=== PATIENT | female | born 1995 | race Native Hawaiian/Other Pacific Islander ===

== ENCOUNTER 2016-10-21 11:41 | Inpatient (IN) ==
[2016-10-21 12:44] LABS: URINE SOURCE VOIDED
[2016-10-21 12:48] LABS: BILIRUBIN URINE NEGATIVE (NEGATIVE); BLOOD URINE 2+ (NEGATIVE); CLARITY SL. CLOUDY (CLEAR); COLOR YELLOW; GLUCOSE URINE NEGATIVE (NEGATIVE); LEUKOCYTES URINE 2+ (NEGATIVE); NITRITE URINE NEGATIVE (NEGATIVE); PROTEIN URINE NEGATIVE (NEGATIVE); UROBILINOGEN URINE NORMAL
[2016-10-21] MEDS ORDERED: REGLAN PO ONE (13:20)
[2016-10-21] MEDS ORDERED: KEFZOL 1 GM/D5W 1 GM/50 ML IVPB IV PRN (13:20)
[2016-10-21] MEDS ORDERED: LR 500 ML IV ONE (13:20)
[2016-10-21] MEDS ORDERED: PEPCID PO ONE (13:20)
--- NOTE | 2016-10-21 13:32 | HISTORY AND PHYSICAL ---
DIAGNOSES: 1. Apparent term . 2. No care. 3. Spontaneous rupture of membranes. 4. Previous section. SUMMARY: Ruthie Nguyen is a 20-year-old 2, para 1-0-0-1. She has not had care. She did come to labor and delivery approximately a month ago. Her laboratory evaluations were performed. She is A positive. Rubella is immune. Hepatitis B surface antigen, HIV are negative. This patient gives a history of her previous for failure to progress in labor. I do not have any operative records. She came in today with rupture of membranes. She is unsure of when rupture of membranes occurred. She woke up at approximately 8 a.m. with the bed being wet. Rupture membranes has been confirmed with the ROM Plus test. She is 1-2 cm dilated, heart tones were category 1. There is occasional contraction. Infant in the vertex presentation. Due to history of previous and unknown scar she is not a candidate for trial of labor. We are therefore proceeding with a repeat C- section. PAST MEDICAL HISTORY: Patient gives no history of chronic medical or surgical illnesses. CURRENT MEDICATIONS: None. ALLERGIES: None. PHYSICAL EXAMINATION: GENERAL: Shows a well-developed, well-nourished female. VITAL SIGNS: Stable. She is afebrile. CARDIOVASCULAR: Regular rate and rhythm without murmurs, rubs, or gallops. PULMONARY: Clear. BREASTS: No masses. ABDOMEN: Gravid, cervix as above. EXTREMITIES: Trace edema. IMPRESSION: 1. Apparent term by late ultrasound. 2. No care. 3. Rupture membranes. 4. A previous C section of unknown scar PLAN: Is the patient is not a candidate for trial of labor. Will proceed with repeat . Risks, benefits, possible complications and obstetrical indications were discussed. cc: Reza العلي MD MTDShala
[2016-10-21] MEDS: LR 1,000 ML IV SCH ×2 (13:55→14:39)
[2016-10-21] MEDS ORDERED: PITOCIN ONE ×2 (14:17)
[2016-10-21] MEDS ORDERED: PITOCIN 20 UNITS/LR 20 UNITS/1,000 ML IV.SOLN ONE (14:17)
[2016-10-21] MEDS ORDERED: TORADOL ONE (14:18)
[2016-10-21] MEDS ORDERED: DURAMORPH ONE (14:19)
[2016-10-21] MEDS ORDERED: BICITRA PO ONE (14:28)
[2016-10-21] MEDS ORDERED: ZOFRAN IV ONE (14:28)
[2016-10-21 14:41] LABS: BASO% 0.4 % (0.0-0.8); EOS# 0.49 X1000 (0.0-0.7); EOS% 4.4 % (0.0-10.0); HEMOGLOBIN 9.3 g/dL (12.0-16.0); IMM GRAN# 0.04 X1000 (0.0-0.04); IMM GRAN% 0.4 % (0.0-0.5); LYMPH# 1.77 X1000 (1.2-3.4); LYMPH% 15.9 % (20.5-51.1); MANUAL DIFF NEEDED? YES; MCV 63.3 FL (81-99); MONO# 0.61 X1000 (0.11-0.59); MONO% 5.5 % (1.7-9.3); NEUT% 73.4 % (42.2-75.2); PLT 192 X1000 (130-400)
[2016-10-21 14:43] LABS: EOS 4 % (1-10); LYMPHS 16 % (21-51); MONO 5 % (1-9)
[2016-10-21] MEDS ORDERED: NS 100 ML ONE (14:55)
[2016-10-21] MEDS ORDERED: NEO-SYNEPHRINE ONE (14:55)
--- NOTE | 2016-10-21 16:27 | OPERATIVE NOTE ---
PROCEDURE DATE: 10/21/2016 SURGEON: Dr. Reza العلي. ANESTHESIA: Spinal. OPERATION PERFORMED: Repeat low transverse . PREOPERATIVE DIAGNOSES: 1. Term . 2. Spontaneous rupture of membranes. 3. Previous section. 4. No care. POSTOPERATIVE DIAGNOSES: 1. Term . 2. Spontaneous rupture of membranes. 3. Previous section. 4. No care. FINDINGS: At 15:36 a 6 pound 10 ounce male was delivered in a vertex presentation. There was a loose nuchal cord x1. Apgars are 9 at 1 minute and 10 at 5 minutes. SUMMARY: Patient was taken back to the operating room, where spinal anesthetic was placed. She was then placed in supine position with left lateral tilt. The abdomen is prepped and draped in usual fashion. A Pope catheter was in the urinary bladder. Once satisfactory conduction anesthesia was demonstrated, her keloid from the previous incision was sharply excised. We continued the incision down to the fascia where the fascia was excised transversely. The underlying rectus muscles were bluntly and sharply dissected free. The rectus muscle was in the midline. The peritoneum was entered. Lower uterine segment was identified. The bladder flap was created. A low transverse incision was made across the myometrium. This incision was extended laterally using digital pressure. The 's head was delivered through this incision without difficulty. The shoulders and body delivered without complications. Oropharynx was bulb suctioned. Cord was clamped and cut. The infant was handed to the nursery personnel for further care and evaluation. Cord blood was obtained. Placenta was manually removed. The uterus delivered on the abdominal wall and explored. All membrane fragments removed. The myometrium was reapproximated using a running #1 chromic interlocking suture, followed by several [id number] chromic sutures for complete hemostasis. The uterus was placed back in the pelvic cavity. Uterine incision was reexamined and found to be hemostatic. First and 2nd sponge, instrument and needle count reported as correct. The peritoneum was closed using a running chromic suture. The third and then final sponge, instrument and needle count was correct. The fascia was closed using running #1 Vicryl suture. The adipose tissue was reapproximated in layers using 0 Vicryl sutures. Skin edges then reapproximated using a 3-0 Monocryl suture. Blood loss estimated at 400 mL. There were no complications. Patient went to the recovery room in stable condition. cc: Reza العلي MD
[2016-10-21] MEDS ORDERED: DEMEROL PO PRN ×2 (16:37)
[2016-10-21] MEDS ORDERED: HYDROXYZINE IM PRN (16:37)
[2016-10-21] MEDS ORDERED: PERCOCET-5 PO PRN (16:37)
[2016-10-21] MEDS ORDERED: BOOSTRIX VACCINE IM ONE (16:37)
[2016-10-21] MEDS ORDERED: HYDROXYZINE PO PRN (16:37)
[2016-10-21] MEDS ORDERED: NORCO-5 PO PRN (16:37)
[2016-10-21] MEDS ORDERED: PHENERGAN IM PRN (16:37)
[2016-10-21] MEDS ORDERED: NORCO-10 PO PRN (16:37)
[2016-10-21] MEDS ORDERED: DEMEROL IM PRN (16:37)
[2016-10-21] MEDS ORDERED: PITOCIN 10 UNITS/LR 10 UNIT/1,000 ML IV.SOLN IV SCH (16:37)
[2016-10-21] MEDS ORDERED: CYTOTEC PO PRN (16:37)
[2016-10-21] MEDS ORDERED: AMBIEN PO PRN (16:37)
[2016-10-21] MEDS ORDERED: M-M-R II VACCINE SUBQ ONE (16:37)
[2016-10-21] MEDS ORDERED: PITOCIN IM PRN (16:37)
[2016-10-21] MEDS ORDERED: DULCOLAX PR PRN (16:37)
[2016-10-21] MEDS ORDERED: MYLICON PO PRN (16:37)
[2016-10-21] MEDS ORDERED: PITOCIN 20 UNITS/LR 20 UNITS/1,000 ML IV.SOLN IV ONE (16:37)
[2016-10-21] MEDS ORDERED: ZOFRAN ODT PO PRN (19:54)
[2016-10-21] MEDS ORDERED: BENADRYL IV PRN (19:54)
[2016-10-21] MEDS ORDERED: NARCAN INJ PRN (19:54)
[2016-10-21] MEDS ORDERED: ZOFRAN IV PRN ×2 (19:54)
[2016-10-21] MEDS: PERICOLACE PO SCH (20:22)
[2016-10-21] MEDS: MYLICON PO SCH (20:22)
[2016-10-21] MEDS ORDERED: TORADOL IV PRN (23:22)
[2016-10-22 06:42] LABS: HEMATOCRIT 28.5 % (37.0-47.0); MCH 18.1 PG (27-31); MCHC 28.1 g/dL (33-37); MCV 64.5 FL (81-99); PLT 177 X1000 (130-400); RBC 4.42 XMIL (4.2-5.4)
[2016-10-22] MEDS: MOTRIN PO PRN ×2 (08:24→17:33)
[2016-10-22] MEDS: PERCOCET-10 PO PRN ×2 (08:24→17:32)
[2016-10-22] MEDS: MYLICON PO SCH ×5 (08:25→20:51)
[2016-10-22] MEDS ORDERED: LR 1,000 ML IV SCH (16:08)
[2016-10-22] MEDS: PERICOLACE PO SCH (20:51)
[2016-10-23] MEDS: MOTRIN PO PRN ×3 (04:04→20:15)
[2016-10-23] MEDS: MYLICON PO SCH ×4 (09:14→20:11)
[2016-10-23] MEDS: PERCOCET-10 PO PRN ×2 (11:47→20:15)
[2016-10-23] MEDS: PERICOLACE PO SCH (20:11)
[2016-10-24] MEDS: MYLICON PO SCH (08:38)
[2016-10-24] MEDS: PERCOCET-10 PO PRN (10:18)
--- NOTE | 2016-10-24 18:34 | DISCHARGE SUMMARY ---
ADMISSION DATE: 10/21/2016 DISCHARGE DATE: 10/24/2016 ADMITTING DIAGNOSES: 1. Term . 2. Spontaneous rupture of membranes. 3. Previous section. 4. No care. DISCHARGE DIAGNOSES: 1. Term . 2. Spontaneous rupture of membranes. 3. Previous section. 4. No care. PRINCIPAL PROCEDURE: Repeat low-transverse . SUMMARY: This patient is a 20-year-old, 2, para 1-0-0-1, who has had no care. She is term based on an undocumented ultrasound. She presented to Labor and Delivery with rupture of membranes. She was, therefore, admitted to the hospital and underwent a repeat low-transverse . She delivered a male infant weighing 6 pounds 10 ounces with Apgars of 9 in 1 minute and 10 in 5 minutes. There were no intraoperative complications. Postoperatively the patient has done well. She has remained afebrile and all her vital signs are stable. She did have an admission hemoglobin and hematocrit of 9.3/31 with discharge hemoglobin and hematocrit being 8/28.5. This morning cardiac and pulmonary examinations were normal. Bowel and bladder functions are normal. Incisions are clean and dry. She is having scant vaginal bleeding. Ms. Nguyen will be discharged today. We will see her back in the office in a week. Routine discharge instructions, activity limitations, and precautions were discussed. I have given her prescriptions for iron and vitamins. We have also written prescriptions for [place] 10 mg #30 and Motrin 800 mg for postoperative pain. cc: Reza العلي MD
== END 2016-10-24 13:00 | disposition home or self-care (01) ==
LOC: P.OPLD 11:41 → P.LD 11:43 → P.WC 10-23 01:20
PROVIDERS: ADMIT Obstetrics & Gynecology; ATTEND Obstetrics & Gynecology